=== PATIENT | female | born 1985 | race Caucasian/White ===

== ENCOUNTER 2018-07-31 18:13 | Emergency (ER) | payer OTHER ==
[~2018-07-31] VITALS: Ht 160 cm; Wt 63.5 kg
[2018-07-31 18:22] VITALS: BP_SYST 136
--- NOTE | 2018-07-31 18:44 | NUR ---
C/O 4cm complex lac on the palmar aspect of 2nd and 3rd MCP joint with brisk bleeding when uncovered. Flexion 5+ second and third fingers. Pulse demonstrated by good capture on pulse oximetry.
--- NOTE | 2018-07-31 18:44 | NUR ---
Patient to ER bed 2 to gown for evaluation. Side rails up. Report given to Naif PIERCE.
--- NOTE | 2018-07-31 18:47 | NUR ---
Savannah WAFER SLICER at bedside examining patient.
[2018-07-31] MEDS ORDERED: DIPH-TET-PERTUS Vaccine 0.5 ML VIAL (ADACEL) I.M. ONE (19:00)
[2018-07-31] MEDS ORDERED: DIPHENHYDRAMINE INJ 50 MG/ML VIAL IM ONE (19:00)
[2018-07-31] MEDS ORDERED: MORPHINE SULFATE 10 MG/ML VIAL IM ONE (19:00)
[2018-07-31] MEDS ORDERED: LIDOCAINE 1% 10 MG/ML, 20 ML MDV INJ ONE (19:00)
--- NOTE | 2018-07-31 19:30 | NUR ---
KATHARINA Mehta at bedside for laceration repair.
--- NOTE | 2018-07-31 20:00 | NUR ---
No adverse reactions noted after medication adminsitration. Will continue to monitor.
[2018-07-31] MEDS ORDERED: BACITRACIN 1 GM OINT TP ONE (20:45)
[2018-07-31] MEDS ORDERED: IBUPROFEN 800 MG TABLET PO ONE (20:45)
[2018-07-31 21:14] VITALS: BP_SYST 124
--- NOTE | 2018-07-31 21:14 | NUR ---
Patient given written and verbal discharge instructions and verbalizes understanding. ER MD discussed with patient the results and treatment provided. Patient in stable condition. ID arm band removed. Rx of Bacitracin, Tramadol, Clindamycin, and Motrin given. Patient educated on pain management and to follow up with PMD. Pain Scale 2/10 tolerable to patient. Opportunity for questions provided and answered. Medication side effect fact sheet provided.
== END 2018-07-31 21:14 | disposition home or self-care (01) ==
LOC: SED 18:13
DX: S61.411A Laceration without foreign body of right hand, initial encounter (principal); Z88.1 Allergy status to other antibiotic agents; Z88.2 Allergy status to sulfonamides; W26.8XXA Contact with other sharp object(s), not elsewhere classified, initial encounter; Y93.89 Activity, other specified; Y92.89 Other specified places as the place of occurrence of the external cause; Y99.8 Other external cause status
CPT/HCPCS: 12004; 90471; 90715; 96372; 99284; J1200; J2001; J2270